=== PATIENT | female | born 1985 | race African-American/Black ===

== ENCOUNTER 2016-11-25 12:03 | Emergency (ER) | payer OTHER ==
[2016-11-25] MEDS ORDERED: IBUPROFEN 600 MG TABLET (FP) PO ONE (12:14)
[2016-11-25 12:16] VITALS: BP 123/89; PULSE 101; TEMP 99.9; BMI 45.6
--- NOTE | 2016-11-25 12:18 | PDOC ---
History of Present Illness - General Chief Complaint: Sore Throat Stated Complaint: SORE THROAT 2DAYS Time Seen by Provider: 11/25/16 12:06 - History of Present Illness Initial Comments: 11/25/16 12:18 Chief complaint: Sore throat History of present illness: Sore throat for 2 days, generalized weakness, fatigue. No fever, chills, cough, chest pain, shortness of breath, abdominal pain, nausea, vomiting, diarrhea Review of systems: Admit swollen glands in the neck. 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 No tobacco alcohol or drugs Family history: Reviewed and noncontributory Physical exam: Alert oriented 3, significantly obese no acute distress, cheerful and cooperative Temperature 90.9, remainder of vital signs normal PERRLA, fundi benign, conjunctivae clear, ears clear. Throat moderately injected with bilateral exudates. No swelling or mass. No sign of airway obstruction, drooling, or stridor Neck supple, bilateral shoddy adenopathy anterior cervical, no other masses or bruits Chest clear. Breath sounds throughout bilaterally CV S1 and S2 normal without murmur rub or gallop Abdomen soft nontender without mass or organomegaly Skin clear, no rash, adequate turgor and wet mucous membranes Neurological intact Impression: Exudative pharyngitis, rule out strep Plan: Throat culture and further treatment depending on results, analgesics, rest and fluids. Past History - Past Medical History Allergies/Adverse Reactions: Allergies Allergy/AdvReac Type Severity Reaction Status Date / Time No Known Allergies Allergy Verified 11/25/16 12:05 Home Medications: Ambulatory Orders Ibuprofen [Motrin -] 600 mg PO TID #20 tablet 11/25/16 Penicillin V Potassium [Pen Vee K -] 250 mg PO QID #40 tablet 11/25/16 Anemia: No Asthma: No Cancer: No Cardiac Disorders: No CVA: No COPD: No CHF: No Dementia: No Diabetes: No GI Disorders: No Disorders: No HTN: No Hypercholesterolemia: No Liver Disease: No Seizures: No Thyroid Disease: No - Surgical History Abdominal Surgery: Yes (GASTRIC SLEEVE 2012, ABDOMINOPLASTY 05/2015) Appendectomy: No Cardiac Surgery: No Cholecystectomy: No Lung Surgery: No Neurologic Surgery: No Orthopedic Surgery: No - Psycho/Social/Smoking Cessation Hx Smoking History: Never smoked Have you smoked in the past 12 months: No Hx Alcohol Use: Yes (rare) Drug/Substance Use Hx: No Substance Use Type: Alcohol Hx Substance Use Treatment: No Medical Decision Making - Medical Decision Making 11/25/16 12:50 Throat culture positive. Motrin and antibiotics prescribed. Patient tolerating by mouth fluids, fully ambulatory and in no discomfort or other distress upon discharge to follow-up as directed. *DC/Admit/Observation/Transfer Diagnosis at time of Disposition: Acute streptococcal pharyngitis - Discharge Dispostion Disposition: HOME Condition at time of disposition: Stable Admit: No - Prescriptions Prescriptions: Ibuprofen [Motrin -] 600 mg PO TID #20 tablet Penicillin V Potassium [Pen Vee K -] 250 mg PO QID #40 tablet - Patient Instructions Printed Discharge Instructions: DI for Strep Throat Additional Instructions: Don't worry about not eating but try to drink plenty of fluids. Cool or cold liquids are good, including milkshakes or ice pops Take medication as prescribed and finish the complete course. This will take 10 days If there is fever, difficulty breathing or swallowing, or noisy breathing or swallowing, return to the ER or see her primary physician immediately Motrin as prescribed will help relieve the pain and swelling in the throat - Post Discharge Activity Work/School Note: Back to Work
== END 2016-11-25 13:09 | disposition home or self-care (01) ==
LOC: FER 12:03
DX: J02.0 Streptococcal pharyngitis (principal); Z98.84 Bariatric surgery status
CPT/HCPCS: 87070; 87430; 99282-25

== ENCOUNTER 2017-06-06 09:40 | Emergency (ER) | payer OTHER ==
[2017-06-06 09:51] VITALS: BP 126/89; PULSE 89; TEMP 97.8; BMI 41.3
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
[2017-06-06] MEDS ORDERED: IBUPROFEN 400 MG TABLET (FP) PO ONE ×2 (10:26→10:33)
== END 2017-06-06 11:00 | disposition home or self-care (01) ==
LOC: FER 09:40
DX: S20.222A Contusion of left back wall of thorax, initial encounter (principal); X58.XXXA Exposure to other specified factors, initial encounter; Y93.89 Activity, other specified; Y92.9 Unspecified place or not applicable; Z98.84 Bariatric surgery status
CPT/HCPCS: 84703; 99281-25

== ENCOUNTER 2020-05-23 00:51 | Emergency (ER) | payer OTHER ==
[2020-05-23] MEDS ORDERED: SODIUM CHLORIDE 1,000 ML IV STA (00:56)
[2020-05-23 01:01] VITALS: BP 140/84; PULSE 101; TEMP 99.8; BMI 41.3
[2020-05-23] MEDS ORDERED: ONDANSETRON 4 MG/2 ML VIAL IVPB ONE (01:02)
[2020-05-23] MEDS ORDERED: ONDANSETRON 4 MG/2 ML VIAL ONE (01:09)
[2020-05-23 02:04] LABS: URINE APPEARANCE CLEAR; URINE BILIRUBIN NEGATIVE (NEGATIVE); URINE COLOR YELLOW; URINE GLUCOSE (UA) NEGATIVE (NEGATIVE); URINE KETONE TRACE (NEGATIVE); URINE LEUK ESTERASE NEGATIVE (NEGATIVE); URINE NITRITE NEGATIVE (NEGATIVE); URINE PROTEIN NEGATIVE (NEGATIVE)
[2020-05-23 02:05] LABS: BASO % 0.9 % (0-2.0); EOS % 2.6 % (0-4.5); HEMATOCRIT 30.7 % (32.4-45.2); LYMPH % 28.5 % (8-40); MCH 26.5 pg (25.7-33.7); MCHC 32.4 g/dl (32.0-36.0); MEAN CELL VOLUME 81.8 fl (80-96); MEAN PLT VOLUME 9.1 fl (7.5-11.1); MONO % 6.9 % (3.8-10.2); NEUT % 61.1 % (42.8-82.8); PLATELET COUNT 322 K/MM3 (134-434); RBC 3.75 M/mm3 (3.60-5.2); RDW 15.5 % (11.6-15.6); WHITE BLOOD COUNT 9.8 K/mm3 (4.0-10.0)
[2020-05-23 02:25] LABS: ALBUMIN 2.9 g/dl (3.4-5.0); CALCIUM 8.8 mg/dL (8.5-10.1)
[2020-05-23 02:29] LABS: CREATININE 0.6 mg/dL (0.55-1.3)
[2020-05-23 02:32] LABS: BILIRUBIN,TOTAL 0.3 mg/dL (0.2-1); TOT PROT 7.4 g/dl (6.4-8.2)
== END 2020-05-23 05:07 | disposition home or self-care (01) ==
LOC: FER 00:51
PROC: 3E033GC Introduction of Other Therapeutic Substance into Peripheral Vein, Percutaneous Approach (ICD-10-PCS; principal; 2020-05-23)
PROC: 3E0337Z Introduction of Electrolytic and Water Balance Substance into Peripheral Vein, Percutaneous Approach (ICD-10-PCS; 2020-05-23)
DX: O21.1 Hyperemesis gravidarum with metabolic disturbance (principal); Z34.91 Encounter for supervision of normal pregnancy, unspecified, first trimester; Z3A.01 Less than 8 weeks gestation of pregnancy
CPT/HCPCS: 36415; 76801-TC; 80053; 81003; 84703; 85025; 99284-25

== ENCOUNTER 2024-07-17 18:43 | Emergency (ER) | payer OTHER ==
[2024-07-17 18:52] VITALS: BP 103/82; PULSE 73; RESP 18; TEMP 98.2; BMI 37.8
== END 2024-07-17 19:37 | disposition home or self-care (01) ==
LOC: FER 18:43
DX: M54.2 Cervicalgia (principal); M25.531 Pain in right wrist; M25.561 Pain in right knee; V43.52XA Car driver injured in collision with other type car in traffic accident, initial encounter; Y92.410 Unspecified street and highway as the place of occurrence of the external cause
CPT/HCPCS: 99283-25

== ENCOUNTER 2024-10-31 00:45 | Emergency (ER) | payer OTHER ==
[2024-10-31] MEDS ORDERED: PENICILLIN V POTASSIUM 500 MG TABLET PO ONE (00:54)
[2024-10-31 00:56] VITALS: BP 117/76; PULSE 83; RESP 16; TEMP 99.1; BMI 36.5
[2024-10-31] MEDS ORDERED: AMOX TR/POT CLAV 875MG/125MG TABLETS (FP) ONE (01:22)
[2024-10-31] MEDS: AMOX TR/POT CLAV 875MG/125MG TABLETS (FP) PO ONE (01:49)
== END 2024-10-31 01:51 | disposition home or self-care (01) ==
LOC: FER 00:45
DX: R22.0 Localized swelling, mass and lump, head (principal); K04.7 Periapical abscess without sinus
CPT/HCPCS: 99283-25